=== PATIENT | male | born 1980 | race Caucasian/White ===

== ENCOUNTER → 2018-02-01 07:20 | Outpatient (CLI) | payer OTHER, SELFPAY ==
--- NOTE | 2018-02-01 | DI.MRI.S_ITS ---
PROCEDURE: MR SHOULDER LT W CON INDICATIONS: PAIN IN LEFT SHOULDER TECHNIQUE: After the administration of 12 mL of dilute intra-articular Gadolinium contrast, oblique coronal T1 and T2 spin echo with fat saturation, oblique sagittal T1 spin echo with and without fat saturation, oblique sagittal T2 fast spin echo with fat saturation, axial T1 spin echo with fat saturation through the shoulder. COMPARISON: None. FINDINGS: Image quality: Excellent. Rotator cuff: The supraspinatus, infraspinatus, and subscapularis tendons appear intact throughout. There is mild thickening and increased internal signal in the distal supraspinatus and infraspinatus tendons compatible with mild tendinosis. No rotator cuff muscle atrophy on sagittal images. Bones and bursae: No bone marrow contusions or fractures. Moderate acromioclavicular joint osteoarthritic degeneration. The acromion demonstrates conventional anatomy, without an os acromiale. Capsule and soft tissues: There is a tear the anterior labrum extending from the 11:00 to 7:00 position. The glenohumeral ligaments appear intact. The long head of the biceps tendon demonstrates normal location and morphology. The rotator interval appears normal, without fibrosis. The coracohumeral ligament is of normal thickness. No intra-articular bodies. IMPRESSION: 1. Anterior labral tear. 2. Moderate acromioclavicular joint osteophytes. 3. Mild distal supraspinatus and infraspinatus tendinopathy. Dictated by: Abi Ahuja MD, PhD on 02/01/2018 at 10:45 Approved by: Abi Ahuja MD, PhD on 02/03/2018 at 7:56
--- NOTE | 2018-02-01 | DI.RAD.S_ITS ---
PROCEDURE: FL SHOULDER INJECTION MR/CT LT INDICATIONS: ABDOMINAL PAIN TECHNIQUE: The indications, alternatives, benefits, risks, and complications of the procedure were explained to the patient. Written informed consent was obtained and placed in the chart. The shoulder was examined fluoroscopically and a site for needle placement chosen for entry into the glenohumeral joint from an anterior approach. The skin was prepped and draped in a sterile fashion, and 1% lidocaine infiltrated from skin down to joint capsule. A spinal needle was inserted into the glenohumeral joint, and a small amount of iodinated contrast media injected to confirm intra-articular placement of the needle tip. This was followed by approximately 12 mL dilute solution of a gadolinium containing MR contrast agent. The needle was removed and a dressing was applied. The patient was given postprocedural instructions and sent to the MR suite for MR imaging. FINDINGS: A single fluoroscopic spot image demonstrates intra-articular location of injected iodinated contrast. IMPRESSION: Successful fluoroscopically guided administration of dilute Gadolinium solution into the shoulder joint for MR arthrogram. Dictated by: Jason Street M.D. on 02/01/2018 at 10:29 Approved by: Jason Street M.D. on 02/01/2018 at 10:29
== END ==
PROVIDERS: Visit Provider Radiology Diagnostic Radiology
DX: S43.432A Superior glenoid labrum lesion of left shoulder, initial encounter (principal); M25.712 Osteophyte, left shoulder; R10.9 Unspecified abdominal pain
CPT/HCPCS: 23350; 73222; 77002

== ENCOUNTER 2018-05-16 09:58 | Day surgery (SDC) | payer OTHER, SELFPAY ==
[2018-05-09 13:29] VITALS: BMI 28.7
[2018-05-16 11:02] VITALS: BP 125/93; PULSE 59; RESP 16; TEMP 36.8; O2SAT 98; BMI 28.7
--- NOTE | 2018-05-16 12:35 | PM.PREOP ---
Pre-operative Note Interval Note Pre-op Check: Yes History & Physical Reviewed by Physician and Yes Exam Performed Changes: No
--- NOTE | 2018-05-16 13:26 | SUR.PREOP ---
Block start time [1305] . Monitoring initiated and maintained throughout procedure. Oxygen and medications given per anesthesiologist instructions. Patient remained stable throughout procedure, no adverse reactions noted. Block end time []1315.
--- NOTE | 2018-05-16 13:31 | PM.PROC.1 ---
Procedures Date/Time Date of procedure: 05/16/18 Time of procedure: 13:10 General Procedure description: Ultrasound guided interscalene brachial plexus nerve block for post op pain control after left shoulder surgery by Dr. Cisneros. Risk and benefits of procedure discussed with patient. ASA monitoring applied to patient. O2 given via nasal cannula. 2 mg Versed and 50 mcg fentanyl given for procedural sedation. Skin site was prepped with chlorhexidine and allowed to fully dry. Sterile gloves, mask, hat and probe cover were used to maintain sterility. 2% lidocaine and 30ga needle was used to make a small skin wheal at needle insertion site. Under ultrasound guidance, a 21ga 50mm Pajunk needle was directed into the interscalene groove (middle/anterior scalenes) near the brachial plexus. Patient reported no parasthesias. After negative aspiration, 20 mL 0.5% ropivicaine and 10mg dexamethasone were injected around brachial plexus. Patient tolerated procedure well.
[2018-05-16] MEDS: LACTATED RINGERS 1,000 ML 42 ML IV ×3 (13:32→16:30)
[2018-05-16] MEDS: CEFTRIAXONE 2 GM/50 ML FROZ.PIGGY IV (13:50)
--- NOTE | 2018-05-16 14:23 | SUR.PREOP ---
eli cleveland rn assisted dr. taylor with the block
--- NOTE | 2018-05-16 14:33 | SUR.OPER ---
Beach chair with Abhinav/Rosa shoulder positioner. Lower body on padded OR bed. Head in foam padded head cradle, secured with straps. Non-operative arm secured <90 degrees abduction. Pillow under knees. Safety belt at thigh. Cloth tape over blanket over lower legs.
[2018-05-16] MEDS: SODIUM CHLORIDE IRRIG SOLUTION 3,000 ML, EPINEPHrine 1 MG IRR (14:52)
[2018-05-16 15:17] VITALS: BP 116/75; PULSE 86; RESP 16; TEMP 36; O2SAT 95
[2018-05-16 15:22] VITALS: BP 110/66; PULSE 78; RESP 10; O2SAT 92
--- NOTE | 2018-05-16 15:25 | PM.OP.1 ---
Operative Date/Time/Diagnoses Date of procedure: 05/16/18 Time of procedure: 14:25 Pre-op diagnosis: Left shoulder AC joint arthritis Left shoulder anterior labral tear Post-op diagnosis: same Procedure & Clinicians Procedure: left shoulder arthroscopic S LA P debridement Left shoulder arthroscopic glenoid chondroplasty Left shoulder open distal clavicle excision Same procedure as scheduled: Yes Indications: 38-year-old male with predominantly AC joint arthritis who also had a small labral tear and some pain anteriorly at the shoulder. He received 100% pain relief from an AC joint corticosteroid injection. He has a physically demanding job that is starting in 2 months and he needs some pain relief so he can do it. He does not have time for any significant rehab. the risks, benefits, and alternatives to surgery were discussed. The risks included pain, bleeding, infection, damage to nearby structures, lack of symptom relief, need for further surgery, instability, anesthesia complications. He signed a consent form. Surgeon: Kurt Cisneros Assembler Musical Instruments: Lazarus Ladd Click Yes if Unassisted: No Anesthesia Type: General Operative Notes Findings: Examination under anesthesia: Grade 2 posterior load and shift bilaterally. Grade 1 anterior load shift bilaterally. Negative sulcus sign bilaterally. Full range of motion bilaterally. Diagnostic arthroscopy: Subscapularis tendon intact. Biceps tendon intact. No biceps sling injury. Type 1 SL AP lesion. No posterior or inferior labral tear. There was a 7 mm x 7 mm x 7 mm triangular G lad lesion at 4 o'clock anteriorly. There was a labral crack in this location but no displaced labral tear. The humeral head had a focal 5 mm x 5 mm partial thickness cartilage lesion posteriorly. The rotator cuff was intact. Thickened capsule and degenerated articular disc of the AC joint. Closure Type: primary Specimen(s): none sent Estimated Blood Loss (mL): 10 Blood products transfused: none Procedure in detail: The patient was met in the preop hold area on the day of the procedure. Operative extremity was signed. Consent was verified. He desired to proceed. interscalene block was placed for postoperative pain control. He was brought to the operating room and surrendered to anesthesia. Once general anesthesia been obtained examination was performed. He was placed in the supine position and all bony prominences were well padded. He was then placed in the beach chair position and his neck was in neutral. He was then prepped and draped in the standard sterile fashion. A surgical time-out was held to confirm the patient procedure, identity, allergies, radiographs. All were in agreement we proceeded. A standard diagnostic arthroscopy was performed utilizing a posterior viewing portal and anterior superior working portal. I used a switching stick to probe during the examination. The findings are found above. I then changed the switching stick out for the sucker shaver and debrided the Slap lesion as well as the loose portions of the glad lesion. final pictures were taken. All instruments were removed from the joint. I then created a 4 cm longitudinal incision centered over the AC joint. Electrocautery was used to obtain hemostasis. Identified the layer above the joint capsule and full-thickness skin flaps were created. I then created a longitudinal capsulotomy and released the capsular tissue from the distal clavicle. The articular disc was taken. I then measured 1 cm resection and took it with a sagittal saw while Homans were used for protection. The resected bone portion was then released from capsule on the underside and removed. I then smoothed the superior portion of the distal clavicle with a rongeur. There was a gap large enough for my finger to be placed and this did not tighten when I brought the arm across the body. The joint was then irrigated copiously and I closed with 0 Vicryl in the capsular tissues 2 0 Vicryl in the dermis and a running Monocryl in the skin. A sterile dressing was applied and he was placed into a splint. Complications: none Condition: stable Disposition: same day surgery Plan for aftercare: Pendulum exercises weeks 0-2. Sling for 6 weeks. Active range of motion from weeks 2-6. Strengthening can resume at 6 weeks.
[2018-05-16 15:27] VITALS: BP 106/62; PULSE 77; RESP 15; O2SAT 94
[2018-05-16] MEDS: OXYCODONE/ACETAMINOPHEN 5/325 TABLET 1 TAB PO (15:30)
[2018-05-16 15:32] VITALS: BP 96/62; PULSE 81; RESP 17; O2SAT 96
[2018-05-16 15:47] VITALS: BP 115/70; PULSE 79; RESP 16; O2SAT 96
[2018-05-16] MEDS: ONDANSETRON 4 MG/2 ML INJ IV (16:00)
== END 2018-05-16 16:33 | disposition home or self-care (01) ==
PROVIDERS: Visit Provider Orthopaedic Surgery
PROC: (CPT 29805; principal; 2018-05-16 12:15)
PROC: (CPT 23120; 2018-05-16 12:15)
DX: M19.012 Primary osteoarthritis, left shoulder (principal); S43.432A Superior glenoid labrum lesion of left shoulder, initial encounter; M75.92 Shoulder lesion, unspecified, left shoulder; S43.492A Other sprain of left shoulder joint, initial encounter; G89.18 Other acute postprocedural pain
CPT/HCPCS: 29822; 23120; 64415; 64450; J0171; J0461; J0696; J2250; J2405; J2704; J2795; J3010